=== PATIENT | male | born 2000 | race Hispanic/Latino ===

== ENCOUNTER 2020-03-02 13:54 | Emergency (ER) | payer BC, OTHER ==
[2020-03-03 13:21] LABS: SARS-CoV-2 MS2 Positive; SARS-CoV-2 N Gene Negative; SARS-CoV-2 S Gene Negative; SARS-CoV-2 by NAA Not Detected (NotDetected); SARS-CoV-2 orf1ab Negative
== END 2020-03-02 14:15 | disposition home or self-care (01) ==
LOC: ERS 13:54
DX: R43.8 Other disturbances of smell and taste (principal); Z20.828 Contact with and (suspected) exposure to other viral communicable diseases; F41.9 Anxiety disorder, unspecified; F32.9 Major depressive disorder, single episode, unspecified; Z87.891 Personal history of nicotine dependence
CPT/HCPCS: 87635; 99283; U0003

== ENCOUNTER 2020-08-19 17:03 | Emergency (ER) | payer BC ==
[2020-08-20 02:05] LABS: SARS-CoV-2 PCR by NAA DETECTED (NotDetected)
== END 2020-08-19 17:45 | disposition home or self-care (01) ==
LOC: ERS 17:03
DX: U07.1 COVID-19 (principal); Z87.891 Personal history of nicotine dependence
CPT/HCPCS: 87635; 99284; U0003; U0005